=== PATIENT | female | born 1965 | race Caucasian/White ===

== ENCOUNTER 2017-10-20 15:38 | Emergency (ER) | payer MEDICARE, OTHER ==
[~2017-10-20] VITALS: Ht 170.2 cm; Wt 81.7 kg
[2017-10-20] MEDS ORDERED: Zofran Odt4 MG SL (16:47)
== END 2017-10-20 17:23 | disposition home or self-care (01) ==
LOC: ER 15:38
DX: Z76.0 Encounter for issue of repeat prescription (principal); Z79.899 Other long term (current) drug therapy; Z87.891 Personal history of nicotine dependence
CPT/HCPCS: 93005; 93010; 96372; 99283; J1885

== ENCOUNTER 2017-10-28 11:44 | Emergency (ER) | payer MEDICARE, OTHER ==
[~2017-10-28] VITALS: Ht 165.1 cm; Wt 63.5 kg
[~2017-10-28 11:44] MED LIST: Zofran Odt4 MG SL
[2017-10-28] MEDS ORDERED: CYCL10 PO (12:05)
[2017-10-28] MEDS ORDERED: CLON1 PO (12:05)
[2017-10-28] MEDS ORDERED: AMLO10 PO (12:05)
[2017-10-28] MEDS ORDERED: IBUP400 PO (12:06)
[2017-10-28] MEDS ORDERED: MORP30 PO (12:06)
== END 2017-10-28 13:23 | disposition home or self-care (01) ==
LOC: ER 11:44
DX: M54.9 Dorsalgia, unspecified (principal); G89.29 Other chronic pain; I10 Essential (primary) hypertension; Z79.899 Other long term (current) drug therapy; Z79.1 Long term (current) use of non-steroidal anti-inflammatories (NSAID); Z87.891 Personal history of nicotine dependence
CPT/HCPCS: 99281